=== PATIENT | female | born 1980 | race Caucasian/White ===

== ENCOUNTER 2019-04-15 14:53 | Emergency (ER) | payer OTHER ==
[2019-04-15 15:08] VITALS: BP 148/96
--- NOTE | 2019-04-15 15:49 | ED Physician Documentation ---
History of Present Illness - Stated complaint Stated Complaint: COUGH, PAIN IN LUNGS, SOA - Chief complaint Chief Complaint: Resp - History obtained from History obtained from: Patient - History of Present Illness Timing: Other (She had what sounds like influenza about 11 days ago. Shaking chills and body aches. Subsequently developed a minimally productive cough and shortness of breath without fevers that she is had for the last week. She denies any history of asthma or other lung diseases.) Review of Systems Constitutional: denies: Fever, Chills Ears: denies: Ear pain Nose: denies: Rhinorrhea / runny nose Throat: denies: Sore throat Respiratory: reports: Dyspnea, Cough PD PAST MEDICAL HISTORY - Present Medications Home Medications: Ambulatory Orders Medication Instructions Recorded Confirmed Albuterol Sulf [Ventolin Hfa 1 - 2 puffs INH Q4HR PRN #1 inhaler 04/15/19 Inhaler] Azithromycin [Zithromax] 1 tab PO DAILY #6 tablet 04/15/19 guaiFENesin/CODEINE [Robitussin AC] 5 - 10 ml PO Q6H PRN #120 ml 04/15/19 - Allergies Allergies/Adverse Reactions: Allergies Allergy/AdvReac Type Severity Reaction Status Date / Time No Known Drug Allergies Allergy Verified 04/15/19 15:04 PD ED PE NORMAL - Vitals Vital signs reviewed: Yes - General General: Alert and oriented X 3, No acute distress - HEENT HEENT: PERRL, EOMI - Neck Neck: Supple, no meningeal sign, No bony TTP - Cardiac Cardiac: RRR, No murmur - Respiratory Respiratory: No respiratory distress (Mild expiratory wheezings without focal findings otherwise.) - Abdomen Abdomen: Soft, Non tender - Derm Derm: No rash - Neuro Neuro: Alert and oriented X 3, Normal speech Results - Vitals Vitals: Vital Signs - 24 hr 04/15/19 15:00 Temperature 36.9 C Heart Rate 83 Respiratory 20 Rate Blood Pressure 148/96 H O2 Saturation 96 Oxygen O2 Source Room air Departure - Departure Disposition: 01 Home, Self Care Clinical Impression: Bronchitis Condition: Good Record reviewed to determine appropriate education?: Yes Instructions: ED Bronchitis Asthmatic Prescriptions: Albuterol Sulf [Ventolin Hfa Inhaler] 1 - 2 puffs INH Q4HR PRN #1 inhaler PRN Reason: Shortness Of Air/Wheezing Azithromycin [Zithromax] 1 tab PO DAILY #6 tablet guaiFENesin/CODEINE [Robitussin AC] 5 - 10 ml PO Q6H PRN #120 ml PRN Reason: Cough Comments: Recheck with your doctor in 1 week. Return for new or worsening symptoms. Drink plenty of fluids. Your blood pressure was elevated today on check into the emergency department. This does not mean that you have hypertension, it is a common phenomenon to come to the emergency department and have elevated blood pressure. I recommend that you see your primary care physician within the week to have it rechecked when you are feeling better.
== END 2019-04-15 15:55 | disposition home or self-care (01) ==
LOC: ED 14:53
DX: J40 Bronchitis, not specified as acute or chronic (principal); R03.0 Elevated blood-pressure reading, without diagnosis of hypertension
CPT/HCPCS: 99283

== ENCOUNTER 2019-04-25 21:03 | Emergency (ER) | payer OTHER ==
[2019-04-25] MEDS ORDERED: DEXAMETHASONE 10 MG/ML VIAL PO STA (21:19)
[2019-04-25] MEDS ORDERED: IPRATROPIUM/ALBUTEROL 3 ML NEB INH STA (21:19)
[2019-04-25] MEDS ORDERED: CHERRY SYRUP 10 ML UDC PO ONE (21:19)
[2019-04-25] MEDS ORDERED: cefUROXime axetil 250 MG TABLET PO STA (21:20)
--- NOTE | 2019-04-25 21:26 | ED Physician Documentation ---
PD HPI URI - Stated complaint Stated Complaint: SOA - Chief complaint Chief Complaint: Resp - History obtained from History obtained from: Patient - History of Present Illness Timing - onset: How many weeks ago (2) Timing duration: Weeks (2) Timing details: Gradual onset, Still present, Waxing and waning Associated symptoms: Ear pain, Nasal congestion, Rhinorrhea, Dry cough, Dyspnea Contributing factors: Sick contact Improves by: Rest, Medication, MDI/nebulizer Worsened by: Activity Similar symptoms before: Has not had sx before Recently seen: Emergency Dept - Additional information Additional information: 39-year-old previously well female has developed cough and congestion over the past 2 weeks. She was seen here in the emergency department 1 week ago and prescribed a azithromycin and guaifenesin as well as a an albuterol inhaler. She had some improvement until about 2 days ago when suddenly symptoms became much worse she is much more short of breath and has developed some pain in her ears. She has never had to use an inhaler previously has no other specific past medical history and no allergies. Review of Systems Constitutional: denies: Fever Eyes: denies: Decreased vision Ears: reports: Ear pain Nose: reports: Rhinorrhea / runny nose, Congestion Throat: reports: Sore throat (from coughing) Cardiac: denies: Chest pain / pressure, Palpitations Respiratory: reports: Dyspnea, Cough, Wheezing GI: denies: Abdominal Pain, Nausea, Vomiting : denies: Dysuria PD PAST MEDICAL HISTORY - Present Medications Home Medications: Ambulatory Orders Medication Instructions Recorded Confirmed Albuterol Sulf [Ventolin Hfa 1 - 2 puffs INH Q4HR PRN #1 inhaler 04/15/19 Inhaler] Azithromycin [Zithromax] 1 tab PO DAILY #6 tablet 04/15/19 guaiFENesin/CODEINE [Robitussin AC] 5 - 10 ml PO Q6H PRN #120 ml 04/15/19 Albuterol Sulf [Ventolin Hfa 1 - 2 puffs INH Q4HR PRN #1 inhaler 04/25/19 Inhaler] cefUROXime axetil [Ceftin] 500 mg PO Q12H #20 tablet 04/25/19 predniSONE [Prednisone] 40 mg PO DAILY #10 tablet 04/25/19 - Allergies Allergies/Adverse Reactions: Allergies Allergy/AdvReac Type Severity Reaction Status Date / Time No Known Drug Allergies Allergy Verified 04/25/19 21:12 PD ED PE NORMAL - Vitals Vital signs reviewed: Yes (hypertensive ) - General General: Alert and oriented X 3, Well developed/nourished, Other (The patient has audible wheeze and is in tears) - HEENT HEENT: Atraumatic, PERRL, EOMI, Pharynx benign, Dentition benign, Other (Right TM is inflamed with intact landmarks the left is clear) - Neck Neck: Supple, no meningeal sign, No bony TTP - Cardiac Cardiac: RRR, No murmur - Respiratory Respiratory: Other (tachypneic at rest with audible wheeze and insp/exp wheezes throughout without focal rhonchi) - Abdomen Abdomen: Soft, Non tender - Back Back: No CVA TTP, No spinal TTP - Derm Derm: Normal color, Warm and dry, No rash - Extremities Extremities: No deformity, No edema - Neuro Neuro: Alert and oriented X 3, 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, No motor deficit, No sensory deficit, Normal speech Eye Opening: Spontaneous Motor: Obeys Commands Verbal: Oriented GCS Score: 15 - Psych Psych: Normal mood, Normal affect Results - Vitals Vitals: Vital Signs - 24 hr 04/25/19 04/25/19 04/25/19 21:06 21:39 23:01 Temperature 37 C 36.7 C Heart Rate 98 93 90 Respiratory 16 20 16 Rate Blood Pressure 146/103 H 133/97 H O2 Saturation 96 95 Oxygen O2 Source Room air - Rads (name of study) chest Radiology: Prelim report reviewed (Impression: Normal two-view chest radiography.), EMP read indepedently, See rad report PD MEDICAL DECISION MAKING - ED course Complexity details: reviewed old records, reviewed results, re-evaluated patient, considered differential, d/w patient ED course: 39-year-old female with URI has developed otitis and she has significant tight wheezing. She has improvement with the DuoNeb treatment and a chest x-ray is without evidence of infiltrate. Here in the emergency department she is administered dexamethasone 10 mg orally a DuoNeb treatment and 500 mg of Ceftin orally. She has been on a course of azithromycin [address] the patient on a short course of prednisone as well. Departure - Departure Disposition: 01 Home, Self Care Clinical Impression: Otitis media Qualifiers: Otitis media type: suppurative Chronicity: acute Laterality: right Recurrence: non-recurrent Spontaneous tympanic membrane rupture: without spontaneous rupture Qualified Code(s): H66.001 - Acute suppurative otitis media without spontaneous rupture of ear drum, right ear Reactive airway disease Qualifiers: Asthma severity: mild Asthma persistence: intermittent Asthma complication type: with acute exacerbation Qualified Code(s): J45.21 - Mild intermittent asthma with (acute) exacerbation Condition: Stable Instructions: ED Otitis Media Acute Adult, ED Reactive Airway Disease Follow-Up: [facility] [Provider Group] Prescriptions: Albuterol Sulf [Ventolin Hfa Inhaler] 1 - 2 puffs INH Q4HR PRN #1 inhaler PRN Reason: Shortness Of Air/Wheezing cefUROXime axetil [Ceftin] 500 mg PO Q12H #20 tablet predniSONE [Prednisone] 40 mg PO DAILY #10 tablet Forms: Activity restrictions
--- NOTE | 2019-04-25 22:41 | XRAY Report ---
Reason: cough soa Procedure Date: 04/25/2019 Accession Number: [id number] / [id number] Procedure: XR - Chest 2 View X-Ray CPT Code: 85048 Final Report FULL RESULT: EXAM: CHEST RADIOGRAPHY EXAM DATE: 04/25/2019 10:31 PM. CLINICAL HISTORY: Cough soa. COMPARISON: None. TECHNIQUE: 2 views. FINDINGS: Lungs/Pleura: No focal opacities evident. No pleural effusion. No pneumothorax. Normal volumes. Mediastinum: Heart and mediastinal contours are unremarkable. Other: Incidental note of a laparoscopic gastric band. IMPRESSION: Normal 2-view chest radiography. [facility]
[2019-04-25 23:01] VITALS: BP 133/97
== END 2019-04-25 23:37 | disposition home or self-care (01) ==
LOC: ED 21:03
DX: H66.001 Acute suppurative otitis media without spontaneous rupture of ear drum, right ear (principal); J45.21 Mild intermittent asthma with (acute) exacerbation; J06.9 Acute upper respiratory infection, unspecified
CPT/HCPCS: 71046; 94640; 94664; 99283; A9270